=== PATIENT | female | born 1960 | race Caucasian/White ===

== ENCOUNTER 2024-08-01 07:40 | Outpatient (AMB) | payer MEDICARE, SELFPAY ==
--- NOTE | 2024-08-01 07:49 | MHC.PC.OV ---
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 Penicillins Adverse Reaction (Verified 08/01/24 07:51) swelling Sulfa (Sulfonamide Antibiotics) Adverse Reaction (Verified 08/01/24 07:51) swelling Medication List - Last Reconciled 08/01/24 by Hanna Bueno MD cholecalciferol (vitamin D3) 25 mcg PO DAILY cinnamon bark (Cinnamon) 500 mg PO DAILY dapagliflozin propanediol (Farxiga) 10 mg PO DAILY lisinopril 5 mg PO DAILY magnesium glycinate mg PO metformin 1,000 mg PO BID multivitamin 1 tab PO DAILY pravastatin 40 mg PO BEDTIME vitamin B complex 1 tab PO DAILY Tobacco use date assessed: 08/01/24 Fall risk assessment: No Falls in past year Last assessed Fall Risk: 08/01/24 Dental Screening Dental Screen Date: 08/01/24 Did you have a dental visit in the last 12 months?: Yes Did you have a dental problem in the last 6 months where you did not have access to dental care?: No Was dental information given to patient?: 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 PMH includes : DM 2, HTN, hyperlipid. Patient has been seeing endocrinology in [place] twice a day year and A1c has been around 7. PFSH Family History Father Melanoma CAD (coronary artery disease), Onset Age: 55 DM type 2 causing CKD stage 2 Mother DM type 2 causing CKD stage 2 CHF (congestive heart failure) Social History Household Members Other:: , retired, no children Housing: House Patient Tobacco Use Status: Never used Tobacco e-Cigarette/Vaping Use: Never Used Current occupational status: retired Cognitive needs: No Hearing needs: No Vision needs: Yes Questionnaire PHQ-9 Over the last 2 weeks, how often have you been bothered by any of the following problems? 1. Little interest or pleasure in doing things: not at all 2. Feeling down, depressed, or hopeless: not at all 3. Trouble falling or staying asleep, or sleeping too much: several days 4. Feeling tired or having little energy: not at all 5. Poor appetite or overeating: not at all 6. Feeling bad about yourself - or that you are a failure or have let yourself or your family down: not at all 7. Trouble concentrating on things, such as reading the newspaper or watching television: not at all 8. Moving or speaking so slowly that other people could have noticed. Or the opposite - being so fidgety or restless that you have been moving around a lot more than usual: not at all 9. Thoughts that you would be better off or of hurting yourself in some way: not at all Total score: 1 Depression Screening Interpretation: Negative Depression Screening Done: Yes [id number] - PHQ-9 Billing: Yes Source: Developed by Drs. Dio Bundy, Kortney Painter, Sergo Leyva and colleagues, with an educational josh from [employer]. Thrive Questionnaire Date Thrive assessed: 08/01/24 I am a: Patient What is your living situation today?: I have a steady place to live Within the past 12 months, did the food you bought not last and you didn't have the money to get more?: Never true Within the past 12 months, did you worry whether your food would run out before you got money to buy more?: Never true Do you have trouble paying for medicines?: No Do you have trouble getting transportation to medical appointments?: No Do you have trouble paying your heating and electricity bill?: No Do you have trouble taking care of your child, family member or friend?: No Do you have trouble with day-to-day activities such as bathing, preparing meals, shopping, managing finances, etc.?: No Are you interested in more education?: No Please select the resources that you would like help with: None Currently or been in a relationship where the following occur: No concerns reported THRIVE Score: 0 AUDIT C Alcohol Use Questionnaire (AUDIT-C) 1. How often do you have a drink containing alcohol?: Monthly or less 2. How many drinks containing alcohol do you have on a typical day when you are drinking?: 1 or 2 3. How often do you have six or more drinks on one occasion?: Never Total Score: 1 JANNIE-7 AMB Questionnaire JANNIE-7 Date JANNIE - 7 assessed: 08/01/24 Feeling nervous, anxious, or on edge: 0 = Not at all Not being able to stop or control worryin = Not at all Worrying too much about different things: 0 = Not at all Trouble relaxin = Not at all Being so restless that it is hard to sit still: 0 = Not at all Becoming easily annoyed or irritable: 0 = Not at all Feeling afraid as if something awful might happen: 0 = Not at all Total JANNIE-7 score (0-4 normal; 5-9 mild; 10-14 moderate; 15-21 severe): 0 Source: Developed by Drs. Dio Bundy, Kortney Painter, Sergo Leyva and colleagues, with an educational josh from [employer]. Review of Systems Const All systems reviewed & are unremarkable except as noted in HPI and below Reports no additional complaints Eyes Reports no additional complaints ENT Reports no additional complaints Card Reports no additional complaints Resp Reports no additional complaints GI Reports no additional complaints Reports no additional complaints Physical exam (Primary Care) Vital Signs: Last Vital Signs Pulse 72 08/01/24 07:50 BP 124/70 08/01/24 07:50 Pulse Ox 96 08/01/24 07:50 Oxygen Delivery Method Room Air 08/01/24 07:50 BMI result Body Mass Index 26.2 Tobacco/Smoking Status: Tobacco use Status Tobacco use date assessed 08/01/24 08/01/24 08:01 Patient Tobacco Use Status Never used Tobacco 08/01/24 08:22 e-Cigarette/Vaping Use Never Used 08/01/24 08:22 PHQ-9: PHQ-9 Score PHQ-9: Total score 1 08/01/24 08:24 Depression Screening Interpretation: Negative Thrive Assessment: Date of Thrive Assessment Date Thrive assessed 08/01/24 08/01/24 08:01 Currently or been in a relationship where the following occur: No concerns reported Const General: no acute distress HENMT Head: Yes normal to inspection Ears: hearing grossly normal bilaterally Face and sinus: Yes normal facial exam Mouth: Normal oral and palatal mucosa present Throat: Yes posterior oropharynx normal Eyes General: appearance normal, both eyes and all related structures Neck Neck: Yes no lymphadenopathy and Yes supple Resp Effort & Inspection: normal respiratory effort Auscultation: clear to auscultation bilaterally Cardio Rhythm: regular rhythm Heart sounds: S1 normal heart sound present and S2 normal heart sound present GI Inspection: Yes normal to inspection Palpation (GI): Soft to palpation Percussion: Yes normal to percussion Auscultation: normal bowel sounds Extrem Other: Diabetic foot exam skin is intact monofilament sensation intact bilaterally Assessment and Plan Assessment & Plan (1) Hx of screening mammography: Comment: 02/2024 [facility] Code(s): Z92.89 - Personal history of other medical treatment (2) Normal pelvic exam: Comment: 07/2024 [facility], status post hysterectomy Code(s): Z01.419 - Encounter for gynecological examination (general) (routine) without abnormal findings (3) Hx of colonoscopy: Comment: [address] ? [address]. Cotto normal Code(s): Z98.890 - Other specified postprocedural states (4) Annual physical exam: Code(s): Z00.00 - Encounter for general adult medical examination without abnormal findings Plan: Well-balanced diet regular physical activity discussed with the patient she will return for fasting blood work (5) DM type 2 (diabetes mellitus, type 2): Code(s): E11.9 - Type 2 diabetes mellitus without complications Plan: ADA diet increase physical activity weight loss discussed with the patient she was advised that the goal for well-controlled diabetes should be around 6, patient declined Lali monitor and has not been checking her blood glucose regularly. She will return for fasting labs including A1c continue current medications and follow-up in 1 month (6) HTN (hypertension): Code(s): I10 - Essential (primary) hypertension Plan: Continue current medications (7) S/P hysterectomy: Code(s): Z90.710 - Acquired absence of both cervix and uterus (8) Hyperlipidemia: Code(s): E78.5 - Hyperlipidemia, unspecified Plan: Continue statin Orders: Orders Hemoglobin A1c Today E11.9 - Type 2 diabetes mellitus without complications, E78.5 - Hyperlipidemia, unspecified, I10 - Essential (primary) hypertension, Z00.00 - Encounter for general adult medical examination without abnormal findings Microalbumin, Random (w Creat) Today E11.9 - Type 2 diabetes mellitus without complications, E78.5 - Hyperlipidemia, unspecified, I10 - Essential (primary) hypertension, Z00.00 - Encounter for general adult medical examination without abnormal findings Vitamin D 25-OH Total Today E11.9 - Type 2 diabetes mellitus without complications, E78.5 - Hyperlipidemia, unspecified, I10 - Essential (primary) hypertension, Z00.00 - Encounter for general adult medical examination without abnormal findings TSH reflex Free T4 Today E11.9 - Type 2 diabetes mellitus without complications, I10 - Essential (primary) hypertension XR DEXA axial skeleton Today E11.9 - Type 2 diabetes mellitus without complications, E78.5 - Hyperlipidemia, unspecified, I10 - Essential (primary) hypertension, Z00.00 - Encounter for general adult medical examination without abnormal findings Complete Blood Count Auto Diff Today E11.9 - Type 2 diabetes mellitus without complications, E78.5 - Hyperlipidemia, unspecified, I10 - Essential (primary) hypertension, Z00.00 - Encounter for general adult medical examination without abnormal findings Comprehensive [place]. Panel Fast Today E11.9 - Type 2 diabetes mellitus without complications, E78.5 - Hyperlipidemia, unspecified, I10 - Essential (primary) hypertension, Z00.00 - Encounter for general adult medical examination without abnormal findings Lipid Panel Today E11.9 - Type 2 diabetes mellitus without complications, E78.5 - Hyperlipidemia, unspecified, I10 - Essential (primary) hypertension, Z00.00 - Encounter for general adult medical examination without abnormal findings Coding Level of Care Code New Pt Prev Care >65yr (44402) Diagnoses Hx of screening mammography Z92.89 Normal pelvic exam Z01.419 Hx of colonoscopy Z98.890 Annual physical exam Z00.00 DM type 2 (diabetes mellitus, type 2) E11.9 HTN (hypertension) I10 S/P hysterectomy Z90.710 Hyperlipidemia E78.5
[2024-08-01 07:50] VITALS: BP 124/70; PULSE 72; O2SAT 96; BMI 26.2
== END 2024-08-01 14:17 | disposition home or self-care (01) ==
PROVIDERS: Visit Provider Internal Medicine
DX: Z00.00 Encounter for general adult medical examination without abnormal findings (principal); E11.69 Type 2 diabetes mellitus with other specified complication; E78.5 Hyperlipidemia, unspecified; Z92.89 Personal history of other medical treatment; Z98.890 Other specified postprocedural states; I10 Essential (primary) hypertension; Z90.710 Acquired absence of both cervix and uterus

== ENCOUNTER → 2024-08-01 07:40 | Outpatient (BNVA) | payer MEDICARE, SELFPAY | PROVIDERS: Visit Provider Internal Medicine | DX: Z00.00 Encounter for general adult medical examination without abnormal findings (principal); E11.9 Type 2 diabetes mellitus without complications; I10 Essential (primary) hypertension; E78.5 Hyperlipidemia, unspecified; Z90.710 Acquired absence of both cervix and uterus; Z98.890 Other specified postprocedural states; Z92.89 Personal history of other medical treatment | CPT/HCPCS: 99387 ==

== ENCOUNTER 2024-08-20 06:29 | Outpatient (REF) | payer MEDICARE, SELFPAY ==
[2024-08-20 09:57] LABS: MANUAL DIFF FLAG NO
[2024-08-20 10:07] LABS: Basophils Absolute Auto 0.1 X10*3/uL (0.0-0.2); Basophils Percent Auto 0.9 % (0-2); Eosinophils Absolute Auto 0.1 X10*3/uL (0.0-0.4); Hematocrit 47.6 % (37.0-47.0); Hemoglobin 15.4 g/dl (12.0-16.0); Imm Gran Abs Auto 0.01 X10*3/uL (0.00-0.03); Imm Gran Pct Auto 0.2 % (0.0-0.4); Lymphocytes Percent Auto 31.2 % (20-40); Mean Corpuscular HGB Conc 32.4 g/dl (31.0-35.0); Mean Corpuscular Hemoglobin 29.7 pg (27.0-33.0); Mean Corpuscular Volume 91.7 fL (80.0-98.0); Mean Platelet Volume 9.8 fL (9.4-12.3); Monocytes Absolute Auto 0.4 X10*3/uL (0.1-1.2); Monocytes Percent Auto 6.8 % (2-11); Neutrophils Absolute Auto 3.7 x10*3/uL (2.0-8.3); Neutrophils Percent Auto 58.9 % (45-73); Platelet Count 319 X10*3/uL (160-400); Red Blood Count 5.19 X10*6/uL (4.20-5.50); Red Cell Distribution Width 12.4 % (11.0-16.0); White Blood Count 6.4 X10*3/uL (4.8-10.8)
[2024-08-20 10:39] LABS: Estimated Average Glucose 154 mg/dL; Hemoglobin A1C 210.4963 umol/L; Total Hemoglobin (HGBA1C) 3971.7735 umol/L
[2024-08-20 10:43] LABS: Alanine Aminotransferase 17 U/L (0-31); Albumin Level 4.2 g/dL (3.5-5.0); Alkaline Phosphatase 76 U/L (39-117); Anion Gap 12 (12-20); Aspartate Amino Transferase 19 U/L (5-31); Bilirubin Total 0.9 mg/dL (0.0-1.0); Blood Urea Nitrogen 13 mg/dL (9-16); Calcium 9.3 mg/dL (8.4-10.2); Carbon Dioxide 25 mmol/L (22-29); Chloride 107 mmol/L (96-108); Cholesterol 146 mg/dL (<200); Estimated Glomerular Filt Rate > 60; Glucose Fasting 129 mg/dL (60-99); HDL Cholesterol 56 mg/dL (>40); LDL Cholesterol Calculated 67 mg/dL (<100); Potassium 3.6 mmol/L (3.3-5.1); Sodium 140 mmol/L (135-145); Total Protein 6.7 g/dL (6.5-8.0); Triglycerides 116 mg/dL (<150)
[2024-08-20 10:45] LABS: TSH reflex Free T4 0.84 uIU/mL (0.32-4.0); Vitamin D 25-OH Total 108.4 ng/mL (>30)
[2024-08-20 10:46] LABS: Creatinine Urine 85.07 mg/dL; Microalbum/Creatinine Ratio Ur 10.5 ug/mg cr (<30)
== END 2024-08-20 06:30 | disposition home or self-care (01) ==
LOC: HO.HMGCLDS 06:29
PROVIDERS: PCP Internal Medicine; Visit Provider Internal Medicine
DX: Z00.00 Encounter for general adult medical examination without abnormal findings (principal); E11.9 Type 2 diabetes mellitus without complications; I10 Essential (primary) hypertension; E78.5 Hyperlipidemia, unspecified
CPT/HCPCS: 36415; 80053; 80061; 82043; 82306; 82570; 83036; 84443; 85025

== ENCOUNTER 2024-08-24 09:44 | Outpatient (REF) | payer MEDICARE, SELFPAY ==
--- NOTE | ~2024-08-24 | MM_ITS ---
EXAMINATION: BONE DENSITOMETRY CLINICAL INDICATION: Screening. COMPARISON: This is the patient's baseline examination. TECHNIQUE: Using a [employer]ity DXA System (software version: 13.1) manufactured by [employer], dual-energy x-ray absorptiometry was performed of the lumbar spine and left hip. The images are of good technical quality. Summary results are attached. FINDINGS: LEFT FEMUR, NECK: BMD 0.645 g/cm2, Z-score -1.4, T-score -2.8, osteoporosis. LEFT FEMUR, TOTAL: BMD 0.734 g/cm2, Z-score -1.0, T-score -2.2, osteopenia. AP SPINE L1-L4: BMD 1.204 g/cm2, Z-score 1.7, T-score 0.2, normal. IDENTIFIED RISK FACTORS: Early menopause, hysterectomy, secondary osteoporosis. HISTORY OF FRACTURE: None listed. MEDICATIONS: Multivitamin, vitamin D. MM/XR DEXA axial skeleton IMPRESSION: 1. DIAGNOSIS: Osteoporosis based on the lowest T-score value of -2.8 in the femoral neck applying World Health Organization criteria. 2. 10-YEAR FRACTURE RISK PREDICTION, FRAX: According to the guidelines, FRAX calculation should only be performed on patients in the osteopenia bone density category. Therefore, FRAX was not performed on this patient. 3. Treatment Recommendations: NOF guidelines recommend consideration for treatment in postmenopausal women and men age 50 and older presenting with the following: -A hip or vertebral (clinical or morphometric) fracture. -T-score less than or equal to -2.5 at the femoral neck or spine after appropriate evaluation to exclude secondary causes. -Low bone mass at the hip or spine and a 10-year fracture probability by FRAX of greater than or equal to 3% for hip fracture or greater than or equal to 20% for major osteoporotic fracture based on the [place] adapted WHO algorithm. 4. Other Recommendations: All treatment decisions require clinical judgment and consideration of individual patient factors, including patient preferences, comorbidities, previous drug use, risk factors not captured in the FRAX model (e.g. frailty, falls, vitamin D deficiency, increased bone turnover, interval significant decline in bone density) and possible under or overestimation of fracture risk by FRAX. Additional medical evaluation for secondary cause of low bone mineral density may be appropriate. FUTURE SCAN RECOMMENDATION: People with diagnosed cases of osteoporosis or at high risk for fracture should have regular bone mineral density tests. For patients eligible for Medicare, routine testing is allowed once every 2 years. The testing frequency can be increased to one year for patients who have rapidly progressing disease, those who are receiving or discontinuing medical therapy to restore bone mass, or have additional risk factors. Electronically signed by: Henry Hernandez MD 08/27/2024 08:36 AM EDT
== END 2024-08-24 09:45 | disposition home or self-care (01) ==
LOC: HO.MAMMO 09:44
PROVIDERS: PCP Internal Medicine; Visit Provider Internal Medicine
DX: Z13.820 Encounter for screening for osteoporosis (principal); Z78.0 Asymptomatic menopausal state
CPT/HCPCS: 77080

== ENCOUNTER 2024-09-06 09:31 | Outpatient (AMB) | payer MEDICARE, SELFPAY ==
--- NOTE | 2024-09-06 09:51 | MHC.PC.OV ---
Vital Signs 09/06/24 09:52 Height 5 ft 5.5 in Weight 155 lb BMI 25.4 BP 120/66 Blood Pressure Location Lt brachial Position Sitting Pulse 81 Pulse Source Pulse Oximeter Pulse Oximetry (%) 95 Oxygen Delivery Method Room Air Intake Visit Reasons: 1 month follow up Intake Note: Pt is here today for 1 month follow up visit. Allergies Penicillins Adverse Reaction (Verified 09/06/24 09:53) swelling Sulfa (Sulfonamide Antibiotics) Adverse Reaction (Verified 09/06/24 09:53) swelling Medication List - Last Reconciled 09/06/24 by Hanna Bueno MD cholecalciferol (vitamin D3) 25 mcg PO DAILY cinnamon bark (Cinnamon) 500 mg PO DAILY dapagliflozin propanediol (Farxiga) 10 mg PO DAILY lisinopril 5 mg PO DAILY magnesium glycinate mg PO metformin 1,000 mg PO BID multivitamin 1 tab PO DAILY pravastatin 40 mg PO BEDTIME vitamin B complex 1 tab PO DAILY Tobacco use date assessed: 09/06/24 Dental Screening Dental Screen Date: 08/01/24 HPI 1 month follow up HPI Details Pt presents for follow-up on hyperlipidemia, DM 2, hypertension stable on current medications. PFSH Family History Father Melanoma CAD (coronary artery disease), Onset Age: 55 DM type 2 causing CKD stage 2 Mother DM type 2 causing CKD stage 2 CHF (congestive heart failure) Social History Household Members Other:: , retired, no children Housing: House Patient Tobacco Use Status: Never used Tobacco e-Cigarette/Vaping Use: Never Used Current occupational status: retired Cognitive needs: No Hearing needs: No Vision needs: Yes Questionnaire Thrive Questionnaire Date Thrive assessed: 08/01/24 I am a: Patient What is your living situation today?: I have a steady place to live Within the past 12 months, did the food you bought not last and you didn't have the money to get more?: Never true Within the past 12 months, did you worry whether your food would run out before you got money to buy more?: Never true Do you have trouble paying for medicines?: No Do you have trouble getting transportation to medical appointments?: No Do you have trouble paying your heating and electricity bill?: No Do you have trouble taking care of your child, family member or friend?: No Do you have trouble with day-to-day activities such as bathing, preparing meals, shopping, managing finances, etc.?: No Are you currently unemployed and looking for a job?: No Are you interested in more education?: No Please select the resources that you would like help with: None Currently or been in a relationship where the following occur: No concerns reported THRIVE Score: 0 JANNIE-7 AMB Questionnaire JANNIE-7 Date JANNIE - 7 assessed: 08/01/24 Source: Developed by Drs. Dio Bundy, Kortney Painter, Sergo Leyva and colleagues, with an educational josh from [employer]. Review of Systems Const All systems reviewed & are unremarkable except as noted in HPI and below Card Reports no additional complaints Resp Reports no additional complaints GI Reports no additional complaints Reports no additional complaints Physical exam (Primary Care) Vital Signs: Last Vital Signs Pulse 81 09/06/24 09:52 BP 120/66 09/06/24 09:52 Pulse Ox 95 09/06/24 09:52 Oxygen Delivery Method Room Air 09/06/24 09:52 BMI result Body Mass Index 25.4 Tobacco/Smoking Status: Tobacco use Status Tobacco use date assessed 09/06/24 09/06/24 09:54 Patient Tobacco Use Status Never used Tobacco 09/06/24 09:54 e-Cigarette/Vaping Use Never Used 09/06/24 09:54 Thrive Assessment: Date of Thrive Assessment Date Thrive assessed 08/01/24 09/06/24 09:54 Currently or been in a relationship where the following occur: No concerns reported Const General: no acute distress HENMT Face and sinus: Yes normal facial exam Eyes General: appearance normal, both eyes and all related structures Neck Neck: Yes no lymphadenopathy and Yes supple Resp Effort & Inspection: normal respiratory effort Auscultation: clear to auscultation bilaterally Cardio Rhythm: regular rhythm Heart sounds: S1 normal heart sound present and S2 normal heart sound present Coding Level of Care Code Est Pt Level 4 (46991) Diagnoses Osteoporosis M81.0 DM type 2 (diabetes mellitus, type 2) E11.9 Hyperlipidemia E78.5 Assessment & Plan Assessment & Plan (1) Osteoporosis: Comment: DEXA 07/2024 T score -2.8 femoral neck, Fosamax started 09/06 Code(s): M81.0 - Age-related osteoporosis without current pathological fracture Category: Medical Plan: Treatment options discussed with the patient .she will start Fosamax continue vitamin D3 on recheck DEXA in 2 years (2) DM type 2 (diabetes mellitus, type 2): Comment: Patient does not check her blood glucose regularly Code(s): E11.9 - Type 2 diabetes mellitus without complications Category: Medical Plan: A1c is 7.0, ADA diet regular physical activity discussed with the patient. She will continue current medications and follow-up in 3 months with a fasting labs before. Patient was made aware that the goal for well-controlled diabetes is A1c of 6 or less. (3) Hyperlipidemia: Code(s): E78.5 - Hyperlipidemia, unspecified Category: Medical Plan: Continue statin Orders: Orders Comprehensive [place]. Panel Fast 3 Months E11.9 - Type 2 diabetes mellitus without complications, E78.5 - Hyperlipidemia, unspecified Hemoglobin A1c 3 Months E11.9 - Type 2 diabetes mellitus without complications, E78.5 - Hyperlipidemia, unspecified Medications: New alendronate (Fosamax) 70 mg PO QWEEK 14 tabs 3RF
[2024-09-06 09:52] VITALS: BP 120/66; PULSE 81; O2SAT 95; BMI 25.4
== END 2024-09-06 10:39 | disposition home or self-care (01) ==
PROVIDERS: Visit Provider Internal Medicine
DX: M81.0 Age-related osteoporosis without current pathological fracture (principal); E11.9 Type 2 diabetes mellitus without complications; E78.5 Hyperlipidemia, unspecified

== ENCOUNTER → 2024-09-06 09:31 | Outpatient (BNVA) | payer MEDICARE, SELFPAY | PROVIDERS: Visit Provider Internal Medicine | DX: M81.0 Age-related osteoporosis without current pathological fracture (principal); E11.9 Type 2 diabetes mellitus without complications; E78.5 Hyperlipidemia, unspecified | CPT/HCPCS: 99212 ==